=== PATIENT | male | born 1980 | race Caucasian/White ===

== ENCOUNTER 2023-02-25 18:32 | Emergency (ER) | payer OTHER, MEDICAID ==
[~2023-02-25] VITALS: Ht 182.8 cm; Wt 145.1 kg
[~2023-02-25 18:32] MED LIST: CLINDAMYCIN HY300 MG PO; DARVOCET N 1001 TAB PO; NKHM; SEPTRA DS 800 M1 TAB PO; TRAMADOL HCL50 MG PO
[2023-02-25] MEDS ORDERED: PENICILLIN VK500 MG PO (19:13)
== END 2023-02-25 19:28 | disposition home or self-care (01) ==
LOC: ED 18:32
DX: K02.9 Dental caries, unspecified (principal); K08.89 Other specified disorders of teeth and supporting structures